=== PATIENT | female | born 1960 | race Two or more races ===

== ENCOUNTER 2017-06-21 18:11 | Emergency (ER) | payer OTHER, MEDICAID ==
[2017-06-21 18:23] VITALS: O2SAT 96
--- NOTE | 2017-06-21 20:56 | EDPHY ---
H & P Stated Complaint: GB surg April 2017@ [facility];incision ?infected;wants 2nd opinion Time Seen by Provider: 06/21/17 19:44 HPI/ROS: CHIEF COMPLAINT: wound recheck HISTORY OF PRESENT ILLNESS: 57-year-old female presents emergency department requesting a recheck of her abdominal incision. Patient had her gallbladder removed 1 month ago at [facility], she had her sutures removed 2 weeks ago. Patient is concerned about 1 of the incisions which is open and oozing. She denies fevers or chills. She reports her abdominal pain is improving. No diarrhea. No other complaints. REVIEW OF SYSTEMS: A comprehensive 10 point review of systems is otherwise negative aside from elements mentioned in the history of present illness. Source: Patient, Family Exam Limitations: No limitations - Personal History Current Tetanus Diphtheria and Acellular Pertussis (TDAP): Unsure - Medical/Surgical History Hx Asthma: Yes Other PMH: neg - Social History Smoking Status: Never smoked - Physical Exam Exam: Physical Exam Gen: Alert and Oriented, NAD HEENT: PERRL, moist mucous membranes NECK: no meningismus CV: regular rate and regular rhythm PULM: CTAB, no wheezes ABDOMEN: Obese, soft, non tender to palpation, BS present BACK: No CVA tenderness NEURO: Neurologically grossly intact EXTREMITIES: normal appearing SKIN: 1 cm abdominal incision opened trauma good granulation tissue, no surrounding erythema, no drainage PSYCH: answers questions appropriately. Constitutional: Initial Vital Signs Temperature (C) 37 C 06/21/17 18:17 Heart Rate 77 06/21/17 18:17 Respiratory Rate 18 06/21/17 18:17 Blood Pressure 112/78 06/21/17 18:17 O2 Sat (%) 96 06/21/17 18:17 O2 Delivery Mode Room Air Allergies/Adverse Reactions: Penicillins Allergy (Intermediate, Verified 06/21/17 18:23) hives,swelling acetaminophen [From Tylenol] Allergy (Mild, Verified 06/21/17 18:24) makes face numb Home Medications: Medication Instructions Recorded NK [No Known Home Meds] 06/21/17 Medical Decision Making ED Course/Re-evaluation: 57-year-old female presents for wound check after gallbladder surgery 1 month ago. Patient has an incision that dehisced though has good granulation tissue and no signs of infection. I have discussed with the patient the healing process that this wound will close from the inside out. She is given return precautions. Departure - Departure Disposition: Home, Routine, Self-Care Clinical Impression: Visit for wound check Condition: Good Instructions: Acute Wounds (ED) Additional Instructions: Return to the emergency department for fevers, increased pain, redness, any new symptoms or concerns. Follow-up with your surgeon for re-evaluation. Referrals: NONE *PRIMARY CARE P,. [Primary Care Provider] - As per Instructions
[2017-06-21 21:12] VITALS: BP 118/85; PULSE 69; RESP 15; TEMP 98.4
== END 2017-06-21 21:24 | disposition home or self-care (01) ==
DX: Z48.01 Encounter for change or removal of surgical wound dressing (principal); J45.909 Unspecified asthma, uncomplicated